=== PATIENT | male | born 1960 | race Caucasian/White ===

== ENCOUNTER 2023-06-06 07:46 | Outpatient (CLI) | payer OTHER ==
--- NOTE | 2023-06-06 13:53 | XRAY Report ---
PROCEDURE: Chest 2V INDICATIONS: ACUTE COUGH TECHNIQUE: 2 views of the chest were acquired. COMPARISON: None. FINDINGS: Surgical changes and devices: None. Lungs and pleura: No pleural effusions or pneumothorax. Lungs are clear. Mediastinum: Mediastinal contours appear normal. Heart size is normal. Bones and chest wall: No suspicious bony lesions. Overlying soft tissues appear unremarkable. IMPRESSION: No acute cardiopulmonary process. Reviewed by: Carli Rocha MD on 06/06/2023 1:52 PM [facility] Approved by: Carli Rocha MD on 06/06/2023 1:52 PM [facility] Station ID: [id number]
== END 2023-06-06 07:47 | disposition home or self-care (01) ==
LOC: DI.N 07:46
PROVIDERS: ATTEND Physician Assistant Medical
DX: R05.1 Acute cough (principal)